=== PATIENT | female | born 1990 | race Caucasian/White ===

== ENCOUNTER 2016-05-01 14:41 | Emergency (ER) | payer OTHER ==
--- NOTE | 2016-05-01 16:52 | EDDOCDS ---
Physician Documentation [facility] Name: Rocio Grigsby Age: 26 yrs Sex: Female : 1990 Arrival Date: 05/01/2016 Time: 14:41 Bed PR Private MD: MAILE ALMANZAR Disposition: 05/01/16 16:36 Discharged to Home/Self Care. Impression: Other chest pain - LEFT LOWER CHEST WALL PAIN. - Condition is Stable. - Discharge Instructions: Chest Wall Pain. - Prescriptions for [place] 5- 325 mg Oral Tablet - take 1 tablet by ORAL route every 6 hours As needed MDD: 4 tabs. MAY CAUSE DROWSINESS. 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 Valium 5 mg Oral Tablet - take 1 tablet by ORAL route at bedtime As needed MDD: 3 tabs; 15 tablet. - Medication Reconciliation, Local Pharmacy Hours form. - Follow up: Emergency Department; When: As needed; Reason: Worsening of conditions. Follow up: Private Physician; When: 2 - 3 days; Reason: Wound/Symptom Recheck, Recheck today's complaints, Continuance of care. - Problem is new. - Symptoms are unchanged. Historical: - Allergies: no known allergies; - Home Meds: 1. BCP Oral 1 tab once daily 2. Imitrex Oral as needed 3. Lexapro 10 mg Oral tab 1 tab once daily 4. Topamax 50 mg Oral tab 1 tab 2 times per day - PMHx: Depression; Migraines; - PSHx: Adenoidectomy; Ear Tubes; - Social history: Smoking status: Patient uses tobacco products, heavy tobacco smoker. No barriers to communication noted, The patient speaks fluent Romanian, Speaks appropriately for age. - Family history: Not pertinent. - : The pt / caregiver states he / she is not on anticoagulants. Home medication list is obtained from the patient. - Exposure Risk Screening:: None identified. 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 5 in. (165.10 cm) (R); Pain 7/10; 16:45 BP 150 / 79 RA Sitting (auto/lg); Pulse 82; Resp 16; Temp 99.4(T); Pulse Ox 100% on rs6 R/A; Pain 7/10; 14:42 Body Mass Index 27.46 (74.84 kg, 165.10 cm) elp MDM: 16:00 US Abd Limited Ordered. EDMS 16:06 [facility] Payment Agreement was scanned into [email or web address] and attached to record. salas 16:06 Financial registration complete. salas Signatures: Dispatcher [employer] [place] Marcelina DennisRN RN ck1 Sherin Gordon PA-C PA-C dt4 Sumaya Valenzuela The chart was reviewed and I authenticate all verbal orders and agree with the evaluation and treatment provided.Attachments: 16:06 [facility] Payment Agreement salas MTDD
--- NOTE | 2016-05-01 16:52 | REP ---
LIMITED ABDOMINAL ULTRASOUND: HISTORY: Left upper quadrant pain. The spleen is normal in size and echogenicity. The spleen measures 9.4 x 5.0 x 9 cm. A small accessory spleen is present. This measures 1.6 x 1.6 x 1.2 cm. The left kidney is normal in echogenicity and size. The left kidney measures 5.9 cm in transverse x 6.8 cm in AP x 11.5 cm in cephalocaudal dimensions. There is no hydronephrosis or mass. IMPRESSION: Normal study. Signed by Jay Pichardo MD 05/01/2016 04:59 P
--- NOTE | 2016-05-01 16:52 | EDDOCDS ---
Nurse's Notes [facility] Name: Rocio Grigsby Age: 26 yrs Sex: Female : 1990 Arrival Date: 05/01/2016 Time: 14:41 Bed PR1 / 25 Private MD: MAILE ALMANZAR Diagnosis: Other chest pain-LEFT LOWER CHEST WALL PAIN Presentation: 05/01 14:44 Presenting complaint: Patient states: worsening left rib pain ongoing for two weeks. ck1 Adult Sepsis Screening: The patient does not have new or worsening altered mentation. Patient's respiratory rate is less than 22. Systolic blood pressure is greater than 100. Patient has a qSOFA score of 0- Negative Sepsis Screen. Suicide/Homicide risk assessment- the patient denies having any suicidal and/or homicidal ideations and does not present with any other emotional, behavioral or mental health complaints. Status: Patient is not a social services specialist or dependent. Transition of care: patient was not received from another setting of care. 14:44 Acuity: ZARINA Level 4 ck1 14:44 Method Of Arrival: Walkin/Carried/Asstd ck1 Triage Assessment: 14:46 General: Appears in no apparent distress, comfortable, Behavior is appropriate for age, ck1 cooperative. Pain: Location: left lateral anterior chest and left breast Pain currently is 7 out of 10 on a pain scale. HIV screening NA for this visit Offered previously. Neurological: Level of Consciousness is awake, alert, obeys commands, Oriented to person, place, time. Respiratory: Airway is patent Respiratory effort is even, unlabored, Respiratory pattern is regular, symmetrical, Reports cough that is Denies shortness of breath. Derm: Skin is intact, is healthy with good turgor, Skin is pink, warm & dry. Musculoskeletal: Circulation, motion, and sensation intact Range of motion intact in all extremities. 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 BCP Oral 1 tab once daily 2. Imitrex Oral as needed 3. Lexapro 10 mg Oral tab 1 tab once daily 4. Topamax 50 mg Oral tab 1 tab 2 times per day - PMHx: Depression; Migraines; - PSHx: Adenoidectomy; Ear Tubes; - Social history: Smoking status: Patient uses tobacco products, heavy tobacco smoker. No barriers to communication noted, The patient speaks fluent Portuguese, Speaks appropriately for age. - Family history: Not pertinent. - : The pt / caregiver states he / she is not on anticoagulants. Home medication list is obtained from the patient. - Exposure Risk Screening:: None identified. Screenin:46 Screening information is obtained from the patient. Fall risk: No risks identified. ck1 Assistance ADL's: requires no assistance with activities of daily living. Abuse/DV Screen: The patient / caregiver reports he/she is: not in a situation that causes fear, pain or injury. Nutritional screening: No deficits noted. Advance Directives: Currently, there is no health care proxy. home support is adequate. Assessment: 16:46 General: Appears in no apparent distress, comfortable, Behavior is appropriate for age, ck1 cooperative. Pain: Location: left lateral anterior chest Pain currently is 7 out of 10 on a pain scale. Neurological: Level of Consciousness is awake, alert, obeys commands, Oriented to person, place, time. Respiratory: No deficits noted. Derm: Skin is intact, is healthy with good turgor, Skin is pink, warm & dry. Vital Signs: 14:42 BP 154 / 80; Pulse 102; Resp 18; Temp 99.1(T); Pulse Ox 100% on R/A; Weight 74.84 kg elp (R); Height 5 ft. 5 in. (165.10 cm) (R); Pain 7/10; 16:45 BP 150 / 79 RA Sitting (auto/lg); Pulse 82; Resp 16; Temp 99.4(T); Pulse Ox 100% on rs6 R/A; Pain 7/10; 14:42 Body Mass Index 27.46 (74.84 kg, 165.10 cm) [facility] Vitals: 14:42 Log In Time: May 01, 2016 at 14:40. [facility] ED Course: 14:42 Patient visited by Trinidad Gonzalez PCA. elp 14:42 MAILE ALMANZAR is Private Physician. elp 14:42 Patient moved to Waiting elp 14:43 Patient visited by Trinidad Gonzalez PCA. elp 14:43 Patient moved to Pre RCE elp 14:45 Triage Initiated ck1 15:12 Patient moved to Triage 1 mlb1 15:35 Patient visited by Marcelina Dennis,JESIKA. ck1 15:39 Sherin Gordon PA-C is [facility]. dt4 15:39 Philip Coles MD is Attending Physician. dt4 15:39 Patient visited by Sherin Gordon PA-C. dt4 16:01 Patient moved to TR1 rs6 16:06 [facility] Payment Agreement was scanned into [employer] and attached to record. gjb 16:06 Patient moved to Ultrasound am10 16:19 Patient moved to TR1 am10 16:42 Patient moved to PR1 / 25 rs6 16:45 Patient visited by Maia Anderson PCA. rs6 16:46 The patient / caregiver is instructed regarding the plan of care and ED course. ck1 16:46 No IV's were initiated during this patient's visit. No procedures done that require ck1 assistance. Order Results: There are currently no results for this order. Outcome: 16:36 Discharge ordered by Provider. dt4 16:45 Discharge Assessment: Patient awake, alert and oriented x 3. No cognitive and/or ck1 functional deficits noted. Patient verbalized understanding of disposition instructions. patient administered narcotics - no. The following High Risk Discharge criteria are identified: None. Discharged to home ambulatory. Condition: stable. Discharge instructions given to patient, Instructed on discharge instructions, follow up and referral plans. medication usage, Demonstrated understanding of instructions, medications, Pt was receptive of discharge instructions/ teaching. Prescriptions given X 2. Ultrasound Study completed. Property :Personal belongings accompany Pt. 16:51 Patient left the ED. ck1 Signatures: Yoni Garcia RN RN mlb1 Marcelina Dennis,RN RN ck1 Niecy Burgos am10 Trinidad Gonzalez, LEAD GENERATION MARKETING MANAGER LEAD GENERATION MARKETING MANAGER elp Sherin Gordon PA-C PA-C dt4 Maia Anderson PCA LEAD GENERATION MARKETING MANAGER rs6 Sumaya Valenzuela MTDD
--- NOTE | 2016-05-03 17:51 | EDDOCDS ---
Physician Documentation [facility] Name: Rocio Grigsby Age: 26 yrs Sex: Female : 1990 Arrival Date: 05/01/2016 Time: 14:41 Bed PR Private MD: MAILE ALMANZAR Disposition: 05/01/16 16:36 Discharged to Home/Self Care. Impression: Other chest pain - LEFT LOWER CHEST WALL PAIN. - Condition is Stable. - Discharge Instructions: Chest Wall Pain. - Prescriptions for [place] 5- 325 mg Oral Tablet - take 1 tablet by ORAL route every 6 hours As needed MDD: 4 tabs. MAY CAUSE DROWSINESS. 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 Valium 5 mg Oral Tablet - take 1 tablet by ORAL route at bedtime As needed MDD: 3 tabs; 15 tablet. - Medication Reconciliation, Local Pharmacy Hours form. - Follow up: Emergency Department; When: As needed; Reason: Worsening of conditions. Follow up: Private Physician; When: 2 - 3 days; Reason: Wound/Symptom Recheck, Recheck today's complaints, Continuance of care. - Problem is new. - Symptoms are unchanged. Historical: - Allergies: no known allergies; - Home Meds: 1. BCP Oral 1 tab once daily 2. Imitrex Oral as needed 3. Lexapro 10 mg Oral tab 1 tab once daily 4. Topamax 50 mg Oral tab 1 tab 2 times per day - PMHx: Depression; Migraines; - PSHx: Adenoidectomy; Ear Tubes; - Social history: Smoking status: Patient uses tobacco products, heavy tobacco smoker. No barriers to communication noted, The patient speaks fluent Russian, Speaks appropriately for age. - Family history: Not pertinent. - : The pt / caregiver states he / she is not on anticoagulants. Home medication list is obtained from the patient. - Exposure Risk Screening:: None identified. 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 5 in. (165.10 cm) (R); Pain 7/10; 16:45 BP 150 / 79 RA Sitting (auto/lg); Pulse 82; Resp 16; Temp 99.4(T); Pulse Ox 100% on rs6 R/A; Pain 7/10; 14:42 Body Mass Index 27.46 (74.84 kg, 165.10 cm) elp MDM: 16:00 US Abd Limited Ordered. EDMS 16:06 [facility] Payment Agreement was scanned into [employer] and attached to record. gjb 16: Financial registration complete. gjb 05/02 08:57 T-Sheet-- Draft Copy was scanned into [employer] and attached to record. gb 08:58 Radiology Report was scanned into [employer] and attached to record. gb Signatures: Dispatcher [employer] EDNH Katty Graff, Reg Reg Marcelina Turner,RN RN ck1 Sherin Gordon, PAMariela PAMariela dt4 Sumaya Valenzuela The chart was reviewed and I authenticate all verbal orders and agree with the evaluation and treatment provided.Attachments: 05/01 16:06 [facility] Payment Agreement gjb 05/02 08:57 T-Sheet-- Draft Copy gb Chart Complete MTDD
--- NOTE | 2016-05-03 17:51 | EDDOCDS ---
Nurse's Notes [facility] Name: Rocio Grigsby Age: 26 yrs Sex: Female : 1990 Arrival Date: 05/01/2016 Time: 14:41 Bed PR1 / 25 Private MD: MAILE ALMANZAR Diagnosis: Other chest pain-LEFT LOWER CHEST WALL PAIN Presentation: 05/01 14:44 Presenting complaint: Patient states: worsening left rib pain ongoing for two weeks. ck1 Adult Sepsis Screening: The patient does not have new or worsening altered mentation. Patient's respiratory rate is less than 22. Systolic blood pressure is greater than 100. Patient has a qSOFA score of 0- Negative Sepsis Screen. Suicide/Homicide risk assessment- the patient denies having any suicidal and/or homicidal ideations and does not present with any other emotional, behavioral or mental health complaints. Status: Patient is not a superintendent service or dependent. Transition of care: patient was not received from another setting of care. 14:44 Acuity: ZARINA Level 4 ck1 14:44 Method Of Arrival: Walkin/Carried/Asstd ck1 Triage Assessment: 14:46 General: Appears in no apparent distress, comfortable, Behavior is appropriate for age, ck1 cooperative. Pain: Location: left lateral anterior chest and left breast Pain currently is 7 out of 10 on a pain scale. HIV screening NA for this visit Offered previously. Neurological: Level of Consciousness is awake, alert, obeys commands, Oriented to person, place, time. Respiratory: Airway is patent Respiratory effort is even, unlabored, Respiratory pattern is regular, symmetrical, Reports cough that is Denies shortness of breath. Derm: Skin is intact, is healthy with good turgor, Skin is pink, warm & dry. Musculoskeletal: Circulation, motion, and sensation intact Range of motion intact in all extremities. 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 BCP Oral 1 tab once daily 2. Imitrex Oral as needed 3. Lexapro 10 mg Oral tab 1 tab once daily 4. Topamax 50 mg Oral tab 1 tab 2 times per day - PMHx: Depression; Migraines; - PSHx: Adenoidectomy; Ear Tubes; - Social history: Smoking status: Patient uses tobacco products, heavy tobacco smoker. No barriers to communication noted, The patient speaks fluent Azeri, Speaks appropriately for age. - Family history: Not pertinent. - : The pt / caregiver states he / she is not on anticoagulants. Home medication list is obtained from the patient. - Exposure Risk Screening:: None identified. Screenin:46 Screening information is obtained from the patient. Fall risk: No risks identified. ck1 Assistance ADL's: requires no assistance with activities of daily living. Abuse/DV Screen: The patient / caregiver reports he/she is: not in a situation that causes fear, pain or injury. Nutritional screening: No deficits noted. Advance Directives: Currently, there is no health care proxy. home support is adequate. Assessment: 16:46 General: Appears in no apparent distress, comfortable, Behavior is appropriate for age, ck1 cooperative. Pain: Location: left lateral anterior chest Pain currently is 7 out of 10 on a pain scale. Neurological: Level of Consciousness is awake, alert, obeys commands, Oriented to person, place, time. Respiratory: No deficits noted. Derm: Skin is intact, is healthy with good turgor, Skin is pink, warm & dry. Vital Signs: 14:42 BP 154 / 80; Pulse 102; Resp 18; Temp 99.1(T); Pulse Ox 100% on R/A; Weight 74.84 kg elp (R); Height 5 ft. 5 in. (165.10 cm) (R); Pain 7/10; 16:45 BP 150 / 79 RA Sitting (auto/lg); Pulse 82; Resp 16; Temp 99.4(T); Pulse Ox 100% on rs6 R/A; Pain 7/10; 14:42 Body Mass Index 27.46 (74.84 kg, 165.10 cm) [facility] Vitals: 14:42 Log In Time: May 01, 2016 at 14:40. [facility] ED Course: 14:42 Patient visited by Trinidad Gonzalez PCA. elp 14:42 MAILE ALMANZAR is Private Physician. elp 14:42 Patient moved to Waiting elp 14:43 Patient visited by Trinidad Gonzalez PCA. elp 14:43 Patient moved to Pre RCE elp 14:45 Triage Initiated ck1 15:12 Patient moved to Triage 1 mlb1 15:35 Patient visited by Marcelina Dennis RN. ck1 15:39 [facility]in Gordon [facility]-C [facility]. dt4 15:39 Philip Coles MD is Attending Physician. dt4 15:39 Patient visited by Sherin Gordon PA-C. dt4 16:01 Patient moved to TR1 rs6 16:06 [facility] Payment Agreement was scanned into [employer] and attached to record. gjb 16:06 Patient moved to Ultrasound am10 16:19 Patient moved to TR1 am10 16:42 Patient moved to PR1 / 25 rs6 16:45 Patient visited by Maia Anderson PCA. rs6 16:46 The patient / caregiver is instructed regarding the plan of care and ED course. ck1 16:46 No IV's were initiated during this patient's visit. No procedures done that require ck1 assistance. 17:46 US Abd Limited Returned. EDMS 05/02 08:57 T-Sheet-- Draft Copy was scanned into [employer] and attached to record. gb 08:58 Radiology Report was scanned into [employer] and attached to record. gb Order Results: Radiology Order: US Abd Limited Test: US Abd Limited REASON FOR EXAMINATION: LUQ, LEFT LOWER CHEST PAIN, ?SPLENOMEGALY; LIMITED ABDOMINAL ULTRASOUND:; ; HISTORY: Left upper quadrant pain.; ; The spleen is normal in size and echogenicity. The spleen measures 9.4 x 5.0 x 9; cm. A small accessory spleen is present. This measures 1.6 x 1.6 x 1.2 cm. The; left kidney is normal in echogenicity and size. The left kidney measures 5.9 cm; in transverse x 6.8 cm in AP x 11.5 cm in cephalocaudal dimensions. There is no; hydronephrosis or mass.; ; IMPRESSION:; ; Normal study.; ; ; Signed by; Jay Pichardo MD 05/01/2016 04:59 P; Outcome: 05/01 16:36 Discharge ordered by Provider. dt4 16:45 Discharge Assessment: Patient awake, alert and oriented x 3. No cognitive and/or ck1 functional deficits noted. Patient verbalized understanding of disposition instructions. patient administered narcotics - no. The following High Risk Discharge criteria are identified: None. Discharged to home ambulatory. Condition: stable. Discharge instructions given to patient, Instructed on discharge instructions, follow up and referral plans. medication usage, Demonstrated understanding of instructions, medications, Pt was receptive of discharge instructions/ teaching. Prescriptions given X 2. Ultrasound Study completed. Property :Personal belongings accompany Pt. 16:51 Patient left the ED. ck1 Signatures: Dispatcher [employer] EDMS Katty Graff, Reg Reg gb Jose, Yoni Reddy RN RN mlb1 Marcelina DennisRN RN ck1 Niecy Burgos am10 Trinidad Gonzalez, ASSOCIATE PROFESSOR OF MUSICOLOGY ASSOCIATE PROFESSOR OF MUSICOLOGY elp Sherin Gordon, PA-C PA-C dt4 Maia Anderson, ASSOCIATE PROFESSOR OF MUSICOLOGY ASSOCIATE PROFESSOR OF MUSICOLOGY rs6 Sumaya Valenzuela Chart Complete MTDD
--- NOTE | 2016-05-03 17:52 | EDDOCDS ---
Physician Documentation [facility] Name: Rocio Grigsby Age: 26 yrs Sex: Female : 1990 Arrival Date: 05/01/2016 Time: 14:41 Bed PR Private MD: MAILE ALMANZAR Disposition: 05/01/16 16:36 Discharged to Home/Self Care. Impression: Other chest pain - LEFT LOWER CHEST WALL PAIN. - Condition is Stable. - Discharge Instructions: Chest Wall Pain. - Prescriptions for [place] 5- 325 mg Oral Tablet - take 1 tablet by ORAL route every 6 hours As needed MDD: 4 tabs. MAY CAUSE DROWSINESS. 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 Valium 5 mg Oral Tablet - take 1 tablet by ORAL route at bedtime As needed MDD: 3 tabs; 15 tablet. - Medication Reconciliation, Local Pharmacy Hours form. - Follow up: Emergency Department; When: As needed; Reason: Worsening of conditions. Follow up: Private Physician; When: 2 - 3 days; Reason: Wound/Symptom Recheck, Recheck today's complaints, Continuance of care. - Problem is new. - Symptoms are unchanged. Historical: - Allergies: no known allergies; - Home Meds: 1. BCP Oral 1 tab once daily 2. Imitrex Oral as needed 3. Lexapro 10 mg Oral tab 1 tab once daily 4. Topamax 50 mg Oral tab 1 tab 2 times per day - PMHx: Depression; Migraines; - PSHx: Adenoidectomy; Ear Tubes; - Social history: Smoking status: Patient uses tobacco products, heavy tobacco smoker. No barriers to communication noted, The patient speaks fluent Turkmen, Speaks appropriately for age. - Family history: Not pertinent. - : The pt / caregiver states he / she is not on anticoagulants. Home medication list is obtained from the patient. - Exposure Risk Screening:: None identified. 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 5 in. (165.10 cm) (R); Pain 7/10; 16:45 BP 150 / 79 RA Sitting (auto/lg); Pulse 82; Resp 16; Temp 99.4(T); Pulse Ox 100% on rs6 R/A; Pain 7/10; 14:42 Body Mass Index 27.46 (74.84 kg, 165.10 cm) elp MDM: 16:00 US Abd Limited Ordered. EDMS 16:06 [facility] [place] Agreement was scanned into [employer] and attached to record. gjb 16: Financial registration complete. gjb 05/02 08:57 T-Sheet-- Draft Copy was scanned into [employer] and attached to record. gb 08:58 Radiology Report was scanned into [employer] and attached to record. gb Signatures: Dispatcher [employer] EDAK Katty Graff, Reg Reg Marcelina Turner,RN RN ck1 Sherin Gordon, PAMariela PAMariela dt4 Sumaya Valenzuela The chart was reviewed and I authenticate all verbal orders and agree with the evaluation and treatment provided.Attachments: 05/01 16:06 [facility] [place] gjb 05/02 08:57 T-Sheet-- Draft Copy gb Chart Complete MTDD
== END 2016-05-01 16:51 | disposition home or self-care (01) ==
LOC: M ED 14:41
DX: R07.89 Other chest pain (principal); F32.9 Major depressive disorder, single episode, unspecified; G43.909 Migraine, unspecified, not intractable, without status migrainosus; F17.200 Nicotine dependence, unspecified, uncomplicated; Z79.899 Other long term (current) drug therapy; Z79.3 Long term (current) use of hormonal contraceptives

== ENCOUNTER → 2016-08-08 | Outpatient (REF) | payer OTHER | LOC: M LAB REF 17:17 | PROVIDERS: ATTEND Advanced Practice Midwife | DX: Z01.419 Encounter for gynecological examination (general) (routine) without abnormal findings (principal); Z11.51 Encounter for screening for human papillomavirus (HPV); R87.610 Atypical squamous cells of undetermined significance on cytologic smear of cervix (ASC-US) ==

== ENCOUNTER → 2016-08-09 | Outpatient (CLI) | payer OTHER | LOC: M SMT 10:21 | PROVIDERS: ATTEND Advanced Practice Midwife | DX: Z11.3 Encounter for screening for infections with a predominantly sexual mode of transmission (principal) ==

== ENCOUNTER → 2016-09-11 | Outpatient (REF) | payer OTHER | LOC: M LAB REF 09:00 | PROVIDERS: ATTEND Obstetrics & Gynecology | DX: R87.820 Cervical low risk human papillomavirus (HPV) DNA test positive (principal) ==

== ENCOUNTER → 2016-09-24 | Outpatient (CLI) | payer OTHER ==
[2016-09-24 18:10] LABS: FREE T4 0.81 NG/DL (0.76-1.46)
== END ==
LOC: M LAB 15:57
PROVIDERS: ATTEND Family Medicine
DX: Z13.29 Encounter for screening for other suspected endocrine disorder (principal)

== ENCOUNTER 2016-12-31 08:33 | Emergency (ER) | payer OTHER ==
[~2016-12-31] VITALS: Ht 165.1 cm; Wt 75.0 kg
[2016-12-31] MEDS ORDERED: ESCI20TA (08:50)
[2016-12-31] MEDS ORDERED: MICROGESTIN (08:50)
[2016-12-31] MEDS ORDERED: SUMA50TA2 (08:50)
[2016-12-31] MEDS ORDERED: TOPI50TA9 (08:50)
[2016-12-31] MEDS ORDERED: CETI10TA (08:50)
[2016-12-31 10:29] LABS: BASO % 0.3 % (0.0-1.0); EOS % 0.5 % (0.0-3.0); LARGE UNSTAINED CELL # 0.1 K/mm3 (0.0-0.4); LARGE UNSTAINED CELL % 1.2 % (0.0-4.0); LYMPH # 1.5 K/mm3 (1.5-6.5); MEAN CORPUSCULAR HEMOGLOBIN 31.9 pg (27.0-33.0); MEAN CORPUSCULAR HGB CONC 34.8 g/dl (32.0-36.5); MEAN CORPUSCULAR VOLUME 91.6 fl (80.0-96.0); MONO # 0.2 K/mm3 (0.0-0.8); MONO % 2.9 % (0.0-5.0); NEUTROPHILS # 4.8 K/mm3 (1.8-7.7); PLATELET COUNT, AUTOMATED 235 k/mm3 (150-450); RED CELL DISTRIBUTION WIDTH 12.5 % (11.5-14.5); WHITE BLOOD COUNT 6.6 K/mm3 (4.0-10.0)
[2016-12-31 10:43] LABS: ALBUMIN 3.7 GM/DL (3.2-5.2); ALBUMIN/GLOBULIN RATIO 1.06 (1.00-1.93); ALKALINE PHOSPHATASE 46 U/L (45-117); ALT/SGPT 18 U/L (12-78); ANION GAP 6 MEQ/L (8-16); AST/SGOT 8 U/L (15-37); BILIRUBIN,DIRECT < 0.1 MG/DL (0.0-0.2); BILIRUBIN,TOTAL 0.3 MG/DL (0.2-1.0); BLOOD UREA NITROGEN 12 MG/DL (7-18); CALCIUM LEVEL 8.8 MG/DL (8.5-10.1); CARBON DIOXIDE LEVEL 24 MEQ/L (21-32); CHLORIDE LEVEL 110 MEQ/L (98-107); CREATININE FOR GFR 0.79 MG/DL (0.55-1.02); GLOMERULAR FILTRATION RATE > 60.0 (>60); GLUCOSE, FASTING 80 MG/DL (70-105); POTASSIUM SERUM 4.2 MEQ/L (3.5-5.1); SODIUM LEVEL 140 MEQ/L (136-145); TOTAL PROTEIN 7.2 GM/DL (6.4-8.2)
[2016-12-31] MEDS ORDERED: ISOVUE-370 76% 100ML VIAL (Q9967) As Ordered ONE (10:47)
--- NOTE | 2016-12-31 11:43 | REP ---
CT ABDOMEN AND PELVIS WITH IV CONTRAST: CT ABDOMEN AND PELVIS WITH CONTRAST: TECHNIQUE: Axial contrast enhanced images from the lung bases to the pubic symphysis using 100 mL Isovue 370 intravenous contrast material with multiplanar reformations. The visualized lung bases are clear. The liver, spleen, adrenals, pancreas and kidneys are unremarkable. There is no hydronephrosis. There is no abdominal aortic aneurysm. No adenopathy is seen. There is no free air or free fluid. There is no bowel wall thickening. There is no evidence of appendicitis. There is no evidence of a pelvic mass. The urinary bladder is minimally distended and not optimally evaluated, but appears grossly unremarkable. IMPRESSION: Negative CT abdomen and pelvis with contrast. No evidence of appendicitis. No free air or free fluid. Signed by Doc Calvin MD 12/31/2016 01:48 P
[2016-12-31 11:53] VITALS: BP 127/74
[2016-12-31] MEDS ORDERED: NAPR500T PO (12:02)
== END 2016-12-31 12:15 | disposition home or self-care (01) ==
LOC: M ED 08:33
DX: S39.011A Strain of muscle, fascia and tendon of abdomen, initial encounter (principal); X58.XXXA Exposure to other specified factors, initial encounter; Y92.89 Other specified places as the place of occurrence of the external cause; Y93.89 Activity, other specified; Y99.8 Other external cause status; F17.210 Nicotine dependence, cigarettes, uncomplicated
CPT/HCPCS: 36415; 74177; 80048; 80076; 81001; 81025; 83690; 85025; 87086; 99284; Q9967

== ENCOUNTER 2019-04-14 19:00 | Emergency (ER) | payer OTHER ==
[~2019-04-14] VITALS: Ht 167.6 cm; Wt 80.3 kg
[~2019-04-14 19:00] MED LIST: CETI10TA; ESCI20TA; MICROGESTIN; NAPR-837 PO; SUMA50TA2; TOPI50TA9
[2019-04-14] MEDS ORDERED: VERAP80TA PO (19:14)
[2019-04-14] MEDS ORDERED: MICR1TAB18 PO (19:14)
[2019-04-14] MEDS ORDERED: TOPI100T9 PO (19:14)
[2019-04-14] MEDS ORDERED: SULF1TAB93 PO (19:14)
[2019-04-14] MEDS ORDERED: NS 1,000 ML IV ONE (20:15)
[2019-04-14 20:28] LABS: BASO % 0.2 % (0.0-1.0); EOS % 0.2 % (0.0-3.0); HEMATOCRIT 38.8 % (36.0-47.0); HEMOGLOBIN 12.8 g/dl (12.0-15.5); LYMPH # 1.7 10^3/uL (1.5-5.0); LYMPH % 28.1 % (24.0-44.0); MEAN CORPUSCULAR HEMOGLOBIN 30.4 pg (27.0-33.0); MEAN CORPUSCULAR VOLUME 92.2 fl (80.0-96.0); MONO # 0.3 10^3/uL (0.0-0.8); MONO % 4.7 % (0.0-5.0); NEUTROPHILS # 4.1 10^3/uL (1.5-8.5); NEUTROPHILS % 66.5 % (36.0-66.0); PLATELET COUNT, AUTOMATED 206 10^3/uL (150-450); RED BLOOD COUNT 4.21 10^6/uL (4.00-5.40); WHITE BLOOD COUNT 6.2 10^3/uL (4.0-10.0)
[2019-04-14] MEDS ORDERED: SUMAtriptan SUCCINATE 25 MG TAB PO ONE (20:45)
[2019-04-14 20:59] LABS: ALT/SGPT 26 U/L (12-78); BILIRUBIN,DIRECT < 0.1 MG/DL (0.0-0.2); BILIRUBIN,TOTAL 0.5 MG/DL (0.2-1.0); LIPASE 78 U/L (73-393); TOTAL PROTEIN 7.4 GM/DL (6.4-8.2)
[2019-04-14] MEDS ORDERED: KETOROLAC 30 MG/ML VIAL (J1885) IV ONE (21:00)
[2019-04-14] MEDS ORDERED: ISOVUE-370 76% 100ML VIAL (Q9967) As Ordered ONE (21:08)
--- NOTE | 2019-04-14 22:21 | REPVR ---
PROCEDURE INFORMATION: Exam: CT Abdomen And Pelvis With Contrast Exam date and time: 04/14/2019 9:12 PM Age: 28 years old Clinical indication: Abdominal pain; Generalized; Additional info: Abdominal fullness, generalized pain TECHNIQUE: Imaging protocol: Computed tomography of the abdomen and pelvis with intravenous contrast. Radiation optimization: All CT scans at this facility use at least one of these dose optimization techniques: automated exposure control; mA and/or kV adjustment per patient size (includes targeted exams where dose is matched to clinical indication); or iterative reconstruction. Contrast material: ISOVUE 370; Contrast volume: 100 ml; Contrast route: IV; COMPARISON: CT ABD/PEL W/IV CONTRAST ONLY 12/31/2016 10:49 AM FINDINGS: Liver: There is a diffuse decrease in hepatic parenchymal density, consistent with fatty infiltration. Gallbladder and bile ducts: Normal. No calcified stones. No ductal dilation. Pancreas: Normal. No ductal dilation. Spleen: Normal. No splenomegaly. Adrenals: Normal. No mass. Kidneys and ureters: Normal. No hydronephrosis. Stomach and bowel: Unremarkable. No obstruction. No mucosal thickening. Appendix: No evidence of appendicitis. Intraperitoneal space: Unremarkable. No free air. No significant fluid collection. Vasculature: Unremarkable. No abdominal aortic aneurysm. Lymph nodes: Unremarkable. No enlarged lymph nodes. Bladder: Unremarkable as visualized. Reproductive: Unremarkable as visualized. Bones/joints: [id number] central spinal stenosis L4-L5. Soft tissues: Unremarkable. IMPRESSION: 1. There is a diffuse decrease in hepatic parenchymal density, consistent with fatty infiltration. 2. No acute findings. Electronically signed by: Eric Hendrickson On 04/14/2019 22:21:08 PM
[2019-04-14 22:39] VITALS: BP 130/70
== END 2019-04-14 22:41 | disposition home or self-care (01) ==
LOC: M ED 19:00
DX: R10.9 Unspecified abdominal pain (principal); K30 Functional dyspepsia; L02.214 Cutaneous abscess of groin; F17.200 Nicotine dependence, unspecified, uncomplicated; Z79.2 Long term (current) use of antibiotics; Z79.899 Other long term (current) drug therapy
CPT/HCPCS: 74177; 80047; 80076; 81001; 83605; 83690; 84702; 85025; 96361; 96374; 99284; J1885; Q9967

== ENCOUNTER → 2021-01-16 | Outpatient (CLI) | payer OTHER ==
[~2021-01-16] MED LIST changes: +BACTDSTA PO; -ESCI20TA; +ESCI20TA16; +MICR1TAB18 PO; +TOPI100T9 PO; +VERA80TA3 PO
[2021-01-16 14:02] LABS: HEMOGLOBIN 12.1 g/dl (12.0-15.5); MEAN CORPUSCULAR HEMOGLOBIN 31.5 pg (27.0-33.0); MEAN CORPUSCULAR HGB CONC 34.6 g/dl (32.0-36.5); MEAN CORPUSCULAR VOLUME 91.1 fl (80.0-96.0); PLATELET COUNT, AUTOMATED 199 10^3/uL (150-450); RED BLOOD COUNT 3.84 10^6/uL (4.00-5.40)
[2021-01-16 14:25] LABS: ERYTHROCYTE SEDIMENTATION RATE 7 mm/hr (0-20)
[2021-01-16 15:48] LABS: ALBUMIN 3.7 GM/DL (3.2-5.2); ALT/SGPT 17 U/L (12-78); BILIRUBIN,TOTAL 0.2 MG/DL (0.2-1.0); BLOOD UREA NITROGEN 11 MG/DL (7-18); CALCIUM LEVEL 8.9 MG/DL (8.5-10.1); CARBON DIOXIDE LEVEL 21 MEQ/L (21-32); CHLORIDE LEVEL 116 MEQ/L (98-107); CHOLESTEROL LEVEL 155 MG/DL (<200); CREATININE FOR GFR 0.86 MG/DL (0.55-1.30); GLOMERULAR FILTRATION RATE > 60.0 (>60); GLUCOSE, FASTING 85 MG/DL (70-100); HDL CHOLESTEROL 42 MG/DL (>40); LDL CHOLESTEROL 91 MG/DL (<100); NON-HDL-C 113 MG/DL; POTASSIUM SERUM 4.1 MEQ/L (3.5-5.1); RHEUMATOID FACTOR QUANT < 10.0 IU/ML (<15.0); SODIUM LEVEL 142 MEQ/L (136-145); TOTAL PROTEIN 6.5 GM/DL (6.4-8.2); TRIGLYCERIDES LEVEL 112 MG/DL (<150)
[2021-01-16 15:54] LABS: FOLATE 13.8 NG/ML (>5.4)
[2021-01-16 16:34] LABS: HIV 1&2 SCREEN CENTAUR NEGATIVE (NEGATIVE)
[2021-01-16 16:36] LABS: HEPATITIS C VIRUS ABY INDEX 3.2 INDEX (<0.8)
== END ==
LOC: M PLALAB 11:15
PROVIDERS: ATTEND Student in an Organized Health Care Education/Training Program
DX: Z00.00 Encounter for general adult medical examination without abnormal findings (principal); M25.50 Pain in unspecified joint; R20.2 Paresthesia of skin

== ENCOUNTER → 2022-12-07 | Outpatient (REF) | payer OTHER ==
[~2022-12-07] MED LIST changes: -MICR1TAB18 PO; +NORE1TAB94 PO; +TOPI-254; -TOPI50TA9
[2022-12-07 19:17] LABS: APPEARANCE, URINE CLEAR (CLEAR); BACTERIA, URINE AUTO NEGATIVE (NEGATIVE); BILIRUBIN, URINE AUTO NEGATIVE (NEGATIVE); BLOOD, URINE BLOOD 1+ (NEGATIVE); COLOR, URINE YELLOW (YELLOW); GLUCOSE, URINE (UA) AUTO NEGATIVE (NEGATIVE); KETONE, URINE AUTO NEGATIVE (NEGATIVE); LEUKOCYTE ESTERASE, URINE AUTO NEGATIVE (NEGATIVE); MUCUS, URINE SMALL (NEGATIVE); NITRITE, URINE AUTO NEGATIVE (NEGATIVE); PROTEIN, URINE AUTO NEGATIVE (NEGATIVE); RBC, URINE AUTO 1 /HPF (0-3); SPECIFIC GRAVITY URINE AUTO 1.012 (1.002-1.035); SQUAMOUS EPITHELIAL CELL UR AU 0 /HPF (0-6); UROBILINOGEN, URINE AUTO 0.2 mg/dL (0.0-2.0); WBC, URINE AUTO 0 /HPF (0-3)
[2022-12-07 20:39] LABS: GC DNA AMPLIFICATION NEGATIVE (NEGATIVE)
== END ==
LOC: M LAB REF 17:37
PROVIDERS: ATTEND Physician Assistant
DX: Z20.2 Contact with and (suspected) exposure to infections with a predominantly sexual mode of transmission (principal); N39.0 Urinary tract infection, site not specified